=== PATIENT | male | born 1960 | race Caucasian/White ===

== ENCOUNTER 2019-08-13 07:17 | Emergency (ER) | payer BC, MEDICARE, OTHER ==
[2019-08-13 07:28] VITALS: RESP 18; TEMP 98.5
--- NOTE | 2019-08-13 07:39 | ED ---
General Adult HPI - General Chief complaint: Extremity Injury, Upper Stated complaint: rt arm injury Time Seen by Provider: 08/13/19 07:31 Source: patient, RN notes reviewed Mode of arrival: ambulatory Limitations: no limitations - History of Present Illness Initial comments: Patient is a pleasant 59-year-old male presenting to the emergency Department with complaints of right wrist discomfort. Patient states last night he tripped over something and fell forward. Patient cut himself with his right hand. Patient has had right wrist discomfort since that time. Patient also struck his face. No loss of consciousness. Mild nasal discomfort. Patient has had previous broken nose is however this is not as bad as that. Patient refuses nasal x-ray. No loss of consciousness. No neck or back pain. No abdominal pain. No chest pain or dyspnea. Tetanus immunization is up-to-date, less than 10 years. - Related Data Home Medications Medication Instructions Recorded Confirmed HYDROcodone/APAP 5-325MG [[place] 1 tab PO BID 01/18/15 01/25/15 5-325] Ibuprofen [Motrin] 800 mg PO Q8H PRN 01/18/15 01/25/15 Simvastatin 40 mg PO DAILY 01/18/15 01/24/15 Previous Rx's Medication Instructions Recorded HYDROcodone/APAP 7.5-325MG [[place] 1 each PO Q6HR PRN #90 tab 01/24/15 7.5-325] Allergies Allergy/AdvReac Type Severity Reaction Status Date / Time codeine AdvReac Nausea Verified 08/13/19 07:28 Review of Systems ROS Statement: Those systems with pertinent positive or pertinent negative responses have been documented in the HPI. ROS Other: All systems not noted in ROS Statement are negative. Constitutional: Denies: fever Eyes: Denies: eye pain ENT: Denies: ear pain Respiratory: Denies: cough, dyspnea Cardiovascular: Denies: chest pain Endocrine: Denies: fatigue Gastrointestinal: Denies: abdominal pain Genitourinary: Denies: dysuria Musculoskeletal: Denies: back pain Skin: Denies: rash Neurological: Denies: weakness Past Medical History Past Medical History: Hyperlipidemia Additional Past Medical History / Comment(s): BACK PAIN History of Any Multi-Drug Resistant Organisms: None Reported Past Surgical History: Back Surgery, Hernia Repair Additional Past Surgical History / Comment(s): UMBILICAL Past Anesthesia/Blood Transfusion Reactions: No Reported Reaction Past Psychological History: No Psychological Hx Reported Smoking Status: Former smoker Past Alcohol Use History: Rare Past Drug Use History: None Reported - Past Family History Mother Family Medical History: No Reported History General Exam Limitations: no limitations General appearance: alert, in no apparent distress Head exam: Present: normocephalic, other (Facial abrasions) Eye exam: Present: normal appearance, PERRL, EOMI ENT exam: Present: normal oropharynx Neck exam: Present: normal inspection. Absent: tenderness Respiratory exam: Present: normal lung sounds bilaterally Cardiovascular Exam: Present: regular rate, normal rhythm Expanded Peripheral pulses: 2+: Radial (R) GI/Abdominal exam: Present: soft. Absent: tenderness Extremities exam: Present: tenderness (Right wrist near the radial side with moderate tenderness. Pain with range of motion. Distally the extremity is neurovascularly intact. 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 Absent: tenderness, vertebral tenderness Neurological exam: Present: alert. Absent: motor sensory deficit Psychiatric exam: Present: normal affect, normal mood Skin exam: Present: normal color Course Vital Signs 08/13/19 07:25 Temperature 98.5 F Pulse Rate 74 Respiratory 18 Rate Blood Pressure 168/80 O2 Sat by Pulse 97 Oximetry Medical Decision Making - Radiology Data Radiology results: image reviewed (Right wrist x-ray shows previous fracture. There is also nondisplaced fracture acutely of the distal radius.) Disposition Clinical Impression: Distal radius fracture, right Disposition: HOME SELF-CARE Condition: Stable Instructions (If sedation given, give patient instructions): Wrist Fracture in Adults (ED) Additional Instructions: Please follow-up with orthopedics in the beginning of the week. Ice to affected area. [id number] Tylenol or Motrin as needed. Return for increased pain, swelling, worsening or change in symptoms, or other concerns. Is patient prescribed a controlled substance at d/c from ED?: No Referrals: Yecenia Pollack MD [Primary Care Provider] - 1-2 days Jonas Reich DO [Doctor of Osteopathic Medicine] - 1-2 days Time of Disposition: 08:09
--- NOTE | 2019-08-13 08:05 | XR ---
EXAMINATION TYPE: XR wrist complete RT , 4 VIEWS DATE OF EXAM ORDERED: 08/13/2019 HISTORY: fall. COMPARISON: None. FINDINGS: There are at least 7 fragments adjacent to the scaphoid in the scaphoid appears to be the origin of these. This undoubtedly relates to previous trauma. There are degenerative changes in the f ifth MCP joint. There is an undisplaced fracture of the radial styloid which extends intra-articularl y without a definite step. IMPRESSION: NO EVIDENCE OF BOTH REMOTE AND ACUTE TRAUMA WITH A MINIMALLY DISPLACED FRACTURE OF THE RIGHT RADIAL S TYLOID EXTENDING INTRA-ARTICULARLY. CODE A: INITIAL ENCOUNTER FOR CLOSED FRACTURE.
[2019-08-13] MEDS ORDERED: traMADol 50 MG STARTER PACK 3 TAB BTL PO STA (08:08)
[2019-08-13 08:37] VITALS: BP 166/77; PULSE 72
== END 2019-08-13 08:39 | disposition home or self-care (01) ==
LOC: EC 07:17
DX: S52.511A Displaced fracture of right radial styloid process, initial encounter for closed fracture (principal); S00.91XA Abrasion of unspecified part of head, initial encounter; E78.5 Hyperlipidemia, unspecified; M54.9 Dorsalgia, unspecified; Z79.891 Long term (current) use of opiate analgesic; Z98.890 Other specified postprocedural states; Z79.1 Long term (current) use of non-steroidal anti-inflammatories (NSAID); Z79.899 Other long term (current) drug therapy; Z88.5 Allergy status to narcotic agent; Z87.891 Personal history of nicotine dependence; W01.0XXA Fall on same level from slipping, tripping and stumbling without subsequent striking against object, initial encounter
CPT/HCPCS: 99283

== ENCOUNTER → 2020-05-28 | Outpatient (CLI) | payer MEDICARE ==
--- NOTE | 2020-05-28 21:52 | US ---
EXAMINATION TYPE: US bladder DATE OF EXAM: 05/28/2020 COMPARISON: CT April 24, 2012 CLINICAL HISTORY: D29.1 BENIGN NEOPLASM OF PROSTATE. EXAM MEASUREMENTS: Pre void: 290 ml Post Void Residual Volume: 48.8mL Color Doppler performed to assess ureteral jets. Bilateral Jets seen: Yes Normal Post Void Residual (less than 50ml): upper limits of normal The bladder is satisfactorily distended without intraluminal mass or wall thickening. After voiding r esidual urine measures just under 50 cc. IMPRESSION: As above.
== END | disposition home or self-care (01) ==
LOC: RADUSWWP 16:14
PROVIDERS: ATTEND Internal Medicine
DX: N32.89 Other specified disorders of bladder (principal); D29.1 Benign neoplasm of prostate
CPT/HCPCS: 76857

== ENCOUNTER 2020-10-20 17:22 | Emergency (ER) | payer MEDICARE ==
[2020-10-20 17:35] VITALS: BP 141/82; PULSE 56; RESP 18; TEMP 98.6
--- NOTE | 2020-10-20 17:48 | ED ---
General Adult HPI - General Chief complaint: Fall Stated complaint: fall, back pain Time Seen by Provider: 10/20/20 17:47 Source: patient Mode of arrival: ambulatory Limitations: no limitations - History of Present Illness Initial comments: Patient presents to the ED with his for evaluation. Patient states that he slipped while going down 2 steps on his boat last night at about 10:30 PM. Patient states that he fell down, landing on his thoracic back. Patient states that he has been having thoracic back pain, as well as upper abdominal/lower chest pain since falling. Patient states that his upper abdominal/lower chest pain is worse with inspiration. Patient states that his back pain is worse with changes in position. Patient admits to head injury, but he denies LOC or headache. Patient denies any other injury or site of pain. Patient denies focal numbness/weakness/neuro deficit, visual changes, speech difficulty, neck pain, lower back pain, extremity pain, dyspnea, palpitations, dizziness, nausea/vomiting/diarrhea, bloody or melanotic stool, dysuria or urinary symptoms, or any other symptoms or complaints. - Related Data Home Medications Medication Instructions Recorded Confirmed Atorvastatin Calcium [Lipitor] 40 mg PO HS 10/20/20 10/20/20 amLODIPine [Norvasc] 5 mg PO DAILY 10/20/20 10/20/20 Allergies Allergy/AdvReac Type Severity Reaction Status Date / Time codeine AdvReac Nausea Verified 10/20/20 19:31 Review of Systems ROS Statement: Those systems with pertinent positive or pertinent negative responses have been documented in the HPI. ROS Other: All systems not noted in ROS Statement are negative. Past Medical History Past Medical History: Hyperlipidemia, Hypertension Additional Past Medical History / Comment(s): BACK PAIN History of Any Multi-Drug Resistant Organisms: None Reported Past Surgical History: Back Surgery, Hernia Repair Additional Past Surgical History / Comment(s): UMBILICAL Past Anesthesia/Blood Transfusion Reactions: No Reported Reaction Past Psychological History: No Psychological Hx Reported Smoking Status: Never smoker Past Alcohol Use History: Occasional Past Drug Use History: None Reported - Past Family History Mother Family Medical History: No Reported History General Exam Limitations: no limitations General appearance: alert, in no apparent distress Head exam: Present: atraumatic, normocephalic Eye exam: Present: normal appearance, PERRL, EOMI ENT exam: Present: mucous membranes moist Neck exam: Present: full ROM, other (Trachea is in midline). Absent: normal inspection, tenderness Respiratory exam: Present: normal lung sounds bilaterally. Absent: respiratory distress, wheezes, rales, rhonchi, stridor, chest wall tenderness Cardiovascular Exam: Present: normal rhythm, bradycardia, normal heart sounds, other (Normal radial pulses bilaterally) GI/Abdominal exam: Present: soft, normal bowel sounds, other (Mild epigastric abdominal tenderness). Absent: distended, guarding Extremities exam: Present: full ROM, other (Pelvis is stable and nontender; patient has full range of motion at bilateral hips without any difficulty/discomfort). Absent: tenderness, pedal edema, calf tenderness Back exam: Present: normal inspection. Absent: tenderness Neurological exam: Present: alert, oriented X3, CN II-XII intact. Absent: motor sensory deficit Psychiatric exam: Present: normal affect, normal mood Skin exam: Present: warm, dry, intact, normal color Course Vital Signs 10/20/20 17:32 Temperature 98.6 F Pulse Rate 56 L Respiratory 18 Rate Blood Pressure 141/82 O2 Sat by Pulse 98 Oximetry - Reevaluation(s) Reevaluation #1: 10/20/20 20:07 Patient denies development of any new pain or symptoms while in the ED. Patient remains alert and breathing comfortably. Patient and are aware the patient's test results, and patient feels comfortable going home with his at this time. Patient and were counseled about back contusions and pancreatitis. Patient was clearly explained return and follow-up instructions, and he feels comfortable with this plan. Patient was instructed to have a low threshold for return to the emergency department should his symptoms worsen. Patient was instructed to avoid alcohol consumption given his elevated lipase level. Patient was also instructed to follow up closely with his primary care provider. EKG Findings - EKG Comments: EKG Findings:: Sinus bradycardia, ventricular rate of 46 bpm, normal PA and QRS intervals, normal QT interval, normal axis, no ST or T-wave abnormality Medical Decision Making - Medical Decision Making Patient's imaging studies are negative for acute traumatic injury of the chest abdomen pelvis. Patient's labs are fairly unremarkable except for a mildly elevated lipase level. Patient has no CT evidence of pancreatic inflammation. I am unsure of the patient's mildly elevated lipase level is of any significance, but I have discussed the possibility of mild pancreatitis with the patient, and have instructed that he avoid alcohol consumption and follow-up closely with his primary care provider. I suspect that the patient's back pain is likely secondary to a contusion or muscle strain. Will discharge patient home with his at this time. Patient states that he has pain medication at home. - Lab Data Result diagrams: 10/20/20 19:09 10/20/20 19:09 Lab Results 10/20/20 10/20/20 10/20/20 Range/Units 19:09 19:09 19:09 WBC 9.9 (3.8-10.6) k/uL RBC 4.65 (4.30-5.90) m/uL Hgb 14.6 (13.0-17.5) gm/dL Hct 42.1 (39.0-53.0) % MCV 90.5 (80.0-100.0) fL MCH 31.5 (25.0-35.0) pg MCHC 34.7 (31.0-37.0) g/dL RDW 12.6 (11.5-15.5) % Plt Count 190 (150-450) k/uL MPV 7.2 Neutrophils % 73 % Lymphocytes % 14 % Monocytes % 8 % Eosinophils % 2 % Basophils % 1 % Neutrophils # 7.3 (1.3-7.7) k/uL Lymphocytes # 1.4 (1.0-4.8) k/uL Monocytes # 0.8 (0-1.0) k/uL Eosinophils # 0.2 (0-0.7) k/uL Basophils # 0.1 (0-0.2) k/uL Sodium 138 (137-145) mmol/L Potassium 4.2 (3.5-5.1) mmol/L Chloride 106 (98-107) mmol/L Carbon Dioxide 27 (22-30) mmol/L Anion Gap 5 mmol/L BUN 18 (9-20) mg/dL Creatinine 0.76 (0.66-1.25) mg/dL Est GFR (CKD-EPI)AfAm >90 (>60 ml/min/1.73 sqM) Est GFR (CKD-EPI)NonAf >90 (>60 ml/min/1.73 sqM) Glucose 87 (74-99) mg/dL Calcium 8.5 (8.4-10.2) mg/dL Total Bilirubin 0.6 (0.2-1.3) mg/dL AST 36 (17-59) U/L ALT 24 (4-49) U/L Alkaline Phosphatase 53 (38-126) U/L Troponin I <0.012 (0.000-0.034) ng/mL Total Protein 6.5 (6.3-8.2) g/dL Albumin 3.8 (3.5-5.0) g/dL Lipase 574 H (23-300) U/L - Radiology Data CT chest/abdomen/pelvis with IV contrast: No evidence of acute traumatic injury of the chest abdomen pelvis. No fracture seen. There is spinal surgery compared to old exam. Left renal calculus increased compared to old exam. Disposition Clinical Impression: Fall, Back contusion Narrative: Possible mild pancreatitis Disposition: HOME SELF-CARE Condition: Stable Instructions (If sedation given, give patient instructions): Fall Prevention (ED), Contusion in Adults (ED), Pancreatitis (ED) Additional Instructions: Return to the ER immediately should you develop new or worsening pain, shortness of breath, feeling dizzy or faint, or new or worsening symptoms. Follow up c losely with your primary care provider. Is patient prescribed a controlled substance at d/c from ED?: No Referrals: Yecenia Pollack MD [Primary Care Provider] - 1-2 days Time of Disposition: 20:12
[2020-10-20] MEDS: HYDROmorphone 0.5 MG/0.5 ML SYRINGE IVP STA (18:34)
[2020-10-20] MEDS: SODIUM CHLORIDE 0.9% 1,000 ML IV ONE (18:38)
--- NOTE | 2020-10-20 19:25 | CT ---
EXAMINATION TYPE: CT ChestAbdPelvis w con DATE OF EXAM: 10/20/2020 COMPARISON: 04/24/2012 HISTORY: Fall, landing on mid back. Back and upper abd pain. CT DLP: 1708.7 mGycm Automated exposure control for dose reduction was used. CONTRAST: Performed with IV Contrast, patient injected with 100 mL of Isovue 300. Images obtained from the thoracic inlet to the floor the pelvis with IV contrast. FINDINGS: The lungs are clear of consolidation. There is no pleural effusion or pneumothorax. Heart appears sli ghtly enlarged. There is no pericardial effusion. There are no hilar masses. There is no mediastinal adenopathy. Liver spleen stomach pancreas gallbladder appear intact. The bile ducts are not dilated. There is no adrenal mass. Kidneys show satisfactory contrast opacification. There is no hydronephrosis. The urete rs are not dilated. There is 3 mm calculus posterior left kidney. There is 1 cm cortical cyst posteri or left kidney. There is no retroperitoneal adenopathy. There are multiple sigmoid diverticula. There is no diverticulitis. Appendix is posterior and appears normal. There is no mesenteric edema. There is no ascites or free air. There is no sign of a bowel obstruction. There is some hypertrophic spurring at both hip joints with mild hip joint space narrowing. There is no hip fracture. Pelvic ring is intact. There is posterior fusion surgery in the lower lumbar spine. The thoracic and lumbar vertebra have fairly normal alignment. There is multilevel spur formation. Th ere is no significant compression deformity. The sternum is intact. The ribs appear intact. Shoulder joints are intact. IMPRESSION: No evidence of acute traumatic injury of the chest abdomen pelvis. No fracture seen. There is spinal surgery compared to old exam. Left renal calculus increased compared to old exam.
[2020-10-20 19:28] LABS: Basophils # (A) 0.1 k/uL (0-0.2); Basophils % (A) 1 %; Eosinophils # (A) 0.2 k/uL (0-0.7); Eosinophils % (A) 2 %; HCT 42.1 % (39.0-53.0); HGB 14.6 gm/dL (13.0-17.5); Lymphocytes # (A) 1.4 k/uL (1.0-4.8); Lymphocytes % (A) 14 %; MCH 31.5 pg (25.0-35.0); MCHC 34.7 g/dL (31.0-37.0); MCV 90.5 fL (80.0-100.0); Mean Platelet Volume 7.2; Monocytes # (A) 0.8 k/uL (0-1.0); Monocytes % (A) 8 %; Neutrophils # (A) 7.3 k/uL (1.3-7.7); Neutrophils % (A) 73 %; Platelet Count 190 k/uL (150-450); RBC 4.65 m/uL (4.30-5.90); RDW 12.6 % (11.5-15.5); WBC 9.9 k/uL (3.8-10.6)
[2020-10-20 19:37] LABS: ALT 24 U/L (4-49); AST 36 U/L (17-59); African American GFR (CKD) >90 (>60 ml/min/1.73 sqM); Albumin 3.8 g/dL (3.5-5.0); Alkaline Phosphatase 53 U/L (38-126); Anion Gap 5 mmol/L; Blood Urea Nitrogen 18 mg/dL (9-20); Calcium 8.5 mg/dL (8.4-10.2); Carbon Dioxide 27 mmol/L (22-30); Chloride 106 mmol/L (98-107); Glucose 87 mg/dL (74-99); Lipase 574 U/L (23-300); Non-African American GFR(CKD) >90 (>60 ml/min/1.73 sqM); Potassium 4.2 mmol/L (3.5-5.1); Sodium 138 mmol/L (137-145); Total Bilirubin 0.6 mg/dL (0.2-1.3); Total Protein 6.5 g/dL (6.3-8.2)
== END 2020-10-20 20:20 | disposition home or self-care (01) ==
LOC: EC 17:22
DX: S20.229A Contusion of unspecified back wall of thorax, initial encounter (principal); S09.90XA Unspecified injury of head, initial encounter; I10 Essential (primary) hypertension; E78.5 Hyperlipidemia, unspecified; Z79.899 Other long term (current) drug therapy; Z88.5 Allergy status to narcotic agent; W01.0XXA Fall on same level from slipping, tripping and stumbling without subsequent striking against object, initial encounter; Y92.814 Boat as the place of occurrence of the external cause
CPT/HCPCS: 36415; 93005; 80053; 83690; 84484; 85025; 71260; 74177; 99284; 96374; 96361; J1170; Q9967

== ENCOUNTER 2022-02-11 06:01 | Day surgery (SDC) | payer MEDICARE ==
[2022-02-11] MEDS ORDERED: LACTATED RINGERS 1,000 ML IV SCH (06:03)
[2022-02-11] MEDS ORDERED: LIDOCAINE 1% (10MG/ML) FOR IV START INTRADERMA PRN (06:03)
[2022-02-11] MEDS ORDERED: LACTATED RINGERS 1,000 ML IV ONE (06:30)
[2022-02-11 06:36] VITALS: TEMP 97.6
[2022-02-11] MEDS ORDERED: PROPOFOL 10 MG/ML 20 ML VIAL IV ONE (07:03)
--- NOTE | 2022-02-11 07:20 | P.PCN ---
Date of Procedure: 02/11/22 Procedure(s) Performed: BRIEF HISTORY: Patient is a 62-year-old pleasant white male scheduled for an elective colonoscopy as a part of the for colon cancer. PROCEDURE PERFORMED: Colonoscopy snare polypectomy. PREOPERATIVE DIAGNOSIS: Screening for colon cancer. IV sedation per Anesthesia. PROCEDURE: After informed consent was obtained, the patient, was brought into the endoscopy unit. IV sedation was administered by Anesthesia under continuous monitoring. Digital rectal examination was normal. Initially the Olympus CF-160 flexible video colonoscope was then inserted in the rectum, gradually advanced into the cecum without any difficulty. Careful examination was performed as the scope was gradually being withdrawn. Ileocecal valve and the appendiceal orifice were visualized and appeared normal. Prep was excellent. Mucosa of the cecum appeared normal. In the ascending colon there was a 7 mm sessile polyp removed by snare polypectomy. Rest of the, ascending colon, transverse colon, descending colon, sigmoid colon, and rectum appeared normal. The proximal rectum there was a 4 mm polyp removed by snare polypectomy. Moderate sigmoid diverticulosis seen. Retroflexion was performed in the rectum and no lesions were seen. The patient tolerated the procedure well. IMPRESSION: 7 mm ascending colon polyp status post polypectomy 4 mm rectal polyp status post polypectomy Moderate sigmoid diverticulosis RECOMMENDATIONS: Findings of this examination were discussed with the patient as well as his family. He was advised to follow with the biopsy results. If the biopsy revealed adenoma he can have a repeat colonoscopy in 5 years..
[2022-02-11 07:28] VITALS: RESP 16
[2022-02-11 07:39] VITALS: BP 127/82; PULSE 47
== END 2022-02-11 08:20 | disposition home or self-care (01) ==
LOC: ORWHC2ENDO 06:01
PROVIDERS: ATTEND Internal Medicine Gastroenterology
DX: Z12.11 Encounter for screening for malignant neoplasm of colon (principal); D12.2 Benign neoplasm of ascending colon; K57.30 Diverticulosis of large intestine without perforation or abscess without bleeding; K62.1 Rectal polyp
CPT/HCPCS: 88305; 45385; J2704

== ENCOUNTER → 2022-08-01 | Outpatient (CLI) | payer MEDICARE ==
--- NOTE | 2022-08-01 16:17 | US ---
EXAMINATION TYPE: US kidneys/renal and bladder DATE OF EXAM: 08/01/2022 COMPARISON: CT 2020 CLINICAL HISTORY: R31.1 hematuria. Hematuria. EXAM MEASUREMENTS: Right Kidney: 14.1 x 6.3 x 4.1 cm Left Kidney: 13.0 x 5.5 x 5.9 cm Multiple grayscale and color Doppler ultrasound images of both kidneys and urinary bladder were obtai carmelita. Right Kidney: *Enlarged. No hydronephrosis or masses seen Left Kidney: Enlarged. -Anechoic area seen lower pole-possible dilated collecting system: 3.9 x 2.9 x 0.9 cm. -Anechoic area seen at the lower pole: 2.0 x 2.1 x 1.8 cm. Bladder: Anechoic Bilateral Jets seen: Yes Urinary bladder is unremarkable and anechoic with both ureteral jets identified. No hydronephrosis in volving the bilateral kidneys. Prominent calyx within the left lower pole. No nephrolithiasis. Simple left lateral cyst measuring up to 2.0 cm. IMPRESSION: 1. No hydronephrosis or renal calculi. 2. Left renal cysts with dilated left renal calyx.
== END | disposition home or self-care (01) ==
LOC: RADUSWWP 08:59
PROVIDERS: ATTEND Urology
DX: N28.1 Cyst of kidney, acquired (principal); R31.1 Benign essential microscopic hematuria
CPT/HCPCS: 76770

== ENCOUNTER → 2022-08-15 | Outpatient (CLI) | payer MEDICARE ==
--- NOTE | 2022-08-15 13:12 | CT ---
CT urogram HISTORY: Left-sided hydronephrosis. COMPARISON: CT chest abdomen pelvis dated 10/21/2019. TECHNIQUE: Multiple axial images were obtained the abdomen and pelvis before and after the administra tion of contrast. Postcontrast images were obtained. Coronal and sagittal reconstructions were genera dominique and reviewed. FINDINGS: The lung bases are clear. The gallbladder is normal without distention, wall thickening, pericholecystic fluid or gallstones. T here is no biliary ductal dilatation. There is no focal mass or organomegaly involving the liver, pancreas, spleen or adrenal glands. . There are no renal calcifications or hydronephrosis. There are no solid renal masses. There are simpl e cysts bilaterally which are stable. There are no filling defects within the renal collecting systems or ureters. The caliber the abdominal aorta is normal. The bowel loops are normal in caliber is no dilatation or obstruction. There is no free intraperitone al air or fluid. There is diverticulosis of the colon without CT evidence of diverticulitis. There is no pelvic mass or adenopathy. There is mild prostatic hypertrophy and mild prosthetic calcif ication there is a stable lipoma in the left inguinal region. There are postsurgical changes at the L4-5 and L5-S1 levels that are stable. No focal lytic or blasti c osseous abnormalities are seen. IMPRESSION: No significant abnormality seen with no interval change. Incidental findings as described above.
== END | disposition home or self-care (01) ==
LOC: RADCTMAIN 09:46
PROVIDERS: ATTEND Urology
DX: N13.30 Unspecified hydronephrosis (principal)
CPT/HCPCS: 74178; 74400; Q9967